=== PATIENT | female | born 1995 | race Caucasian/White ===

== ENCOUNTER → 2020-09-14 15:55 | Outpatient (CLI) | payer OTHER, SELFPAY ==
[2020-09-14 14:54] VITALS: BMI 27.3
[2020-09-14 16:12] LABS: Absolute Lymphocyte Count 2.17 X10^3/uL (0.83-4.51); Absolute Neutrophil Count 5.7 X10^3/uL (2.0-7.7); Basophil# 0.02 X10^3/uL; Basophil% 0.2 % (0-1); Eosinophil# 0.29 X10^3/uL; Eosinophils% 3.3 % (0-5); Hematocrit 40.3 % (37-47); Hemoglobin 13.6 g/dL (12.0-15.0); Lymphocyte # 2.17 X10^3/ul (0.83-4.51); Lymphocyte % 24.7 % (19-41); Mean Corp Hgb Conc 33.7 g/dL (32-36); Mean Corpuscular Hgb 30.5 pg (27.0-32.0); Mean Corpuscular Volume 90.4 fL (81-99); Mean Platelet Vol. 9.7 fl (6.2-12.0); Monocyte# 0.56 X10^3/uL; Monocyte% 6.4 % (0-10); NRBC Flagged by Analyzer 0 % (0-5); Neutrophil # 5.72 X10^3/uL (2.7-7.7); Neutrophil % 65.1 % (47-70); Platelet Count 245 K/mm3 (150-450); RBC Distribution Width CV 12.6 % (11.6-14.6); RBC Distribution Width SD 41.3 fl (35.1-43.9); Red Blood Count 4.46 M/mm3 (4.2-5.4); White Blood Count 8.8 K/mm3 (4.4-11.0)
[2020-09-15 10:43] LABS: HIV - WCH Non-Reactive (Nonreactive); Hepatitis B Surface Antigen Non-Reactive (Nonreactive); Hepatitis C Antibody Non-Reactive (Nonreactive); Rubella IgG Reactive (Nonreactive); Syphilis Antibodies Non-reactive
== END ==
PROVIDERS: PCP Family Medicine; Referring Provider Obstetrics & Gynecology; Visit Provider Obstetrics & Gynecology
DX: Z34.90 Encounter for supervision of normal pregnancy, unspecified, unspecified trimester (principal)
CPT/HCPCS: 36415; 85025; 86703; 86762; 86780; 86803; 86850; 86900; 86901; 87086; 87088; 87340

== ENCOUNTER → 2020-10-14 | Outpatient (CLI) | payer OTHER, SELFPAY ==
[2020-10-14 08:37] VITALS: BMI 27.3
[2020-10-14 13:45] LABS: Amphetamine Urine VISTA NEGATIVE (<1000 ng/mL); Barbiturate Urine VISTA NEGATIVE (< 200 ng/mL); Benzodiazepine Urine VISTA NEGATIVE (< 200 ng/mL); Cocaine Urine VISTA NEGATIVE (< 300 ng/mL); Ecstacy Urine VISTA NEGATIVE (< 500 ng/mL); Methadone Urine VISTA NEGATIVE (< 300 ng/mL); PCP Urine VISTA NEGATIVE (< 25 ng/mL); THC Urine VISTA NEGATIVE (< 50 ng/mL); Vista UDS pH Range 5
[2020-10-14 15:10] LABS: Chlamydia Trachomatis by PCR Negative (Negative); Neisserai gonorrhoeae by PCR Negative (Negative); Probe Check PASS; Sample Adequacy Control PASS; Specimen Processing Control PASS
== END | disposition home or self-care (01) ==
LOC: LABSPEC 13:01
PROVIDERS: PCP Family Medicine; Visit Provider Obstetrics & Gynecology
DX: Z34.92 Encounter for supervision of normal pregnancy, unspecified, second trimester (principal); Z3A.16 16 weeks gestation of pregnancy
CPT/HCPCS: 80307; 87491; 87591

== ENCOUNTER → 2020-11-09 15:04 | Outpatient (CLI) | payer OTHER, SELFPAY ==
[2020-11-09 12:49] VITALS: BMI 27.3
--- NOTE | 2020-11-09 15:11 | US_ITS ---
STUDY: SECOND AND THIRD TRIMESTER OBSTETRICAL ULTRASOUND REASON FOR EXAM: Female, 25 years old anatomy scan LMP: 06/24/2020. TECHNIQUE: Transabdominal TECHNICAL QUALITY: Adequate. PRIOR ULTRASOUND: None. FINDINGS: There is a single intrauterine fetus. The fetus is in a breech presentation. There is demonstrated cardiac activity with a heart rate of 141 bpm. There is a normal amniotic fluid volume. The largest amniotic fluid pocket measures 4.5 cm. The amniotic fluid index (GRETCHEN) is within normal limits. The placenta is posterior and low lying but not previa in location. The tip of the placenta is 6 mm away from the cervical os. There are Grade 0 placental changes. The cervix measures 5.4 cm in length. The adnexal regions are not visualized. BIOMETRY: BPD: 4.33 cm: 19 weeks, 0 days HC: 17.05 cm: 19 weeks, 4 days AC: 15.26 cm: 20 weeks, 3 days FL: 3.14 cm: 19 weeks, 5 days CI: 70.6% FL/BPD: 72.6% FL/HC: FL/AC: 18.4% HC/AC: 1.12 age by current US: 19 weeks, 3 days. SHERRY by current US: 04/02/2021. Estimated weight: 328 grams, +/- 49 grams, 63 %. Age by LMP: 19 weeks, 5 days. SHERRY by LMP: 03/31/2021. ANATOMY: Gender: Male Cranium: Normal lateral ventricles. Normal choroid plexus. Normal cerebellum. Normal cisterna magna. Normal face, nose and lips. Chest: Normal 4-chamber heart. Abdomen/Pelvis: Normal diaphragm. Normal stomach. Normal abdominal wall. Normal cord insertion. Normal 3 vessel cord. Normal kidneys. Normal bladder. Spine: Normal cervical spine. Normal thoracic spine. Normal lumbar spine. Normal sacrum. Extremities: Suboptimal imaging of both hands and feet. US/OB Anatomy Scan IMPRESSION: Single live uterine gestation with a mean gestational age of 19 weeks and 3 days. There is a posterior placenta that is low lying. Electronically Signed: Kevin Maurice MD at 8:43 EDT , Service support ,
== END ==
PROVIDERS: PCP Family Medicine; Referring Provider Obstetrics & Gynecology; Visit Provider Obstetrics & Gynecology
DX: Z36.89 Encounter for other specified antenatal screening (principal); O32.1XX0 Maternal care for breech presentation, not applicable or unspecified; Z3A.19 19 weeks gestation of pregnancy
CPT/HCPCS: 76805; 76817

== ENCOUNTER → 2021-01-04 10:17 | Outpatient (CLI) | payer OTHER, SELFPAY ==
[2021-01-04 10:47] LABS: Absolute Lymphocyte Count 1.77 X10^3/uL (0.83-4.51); Absolute Neutrophil Count 8.4 X10^3/uL (2.0-7.7); Basophil# 0.02 X10^3/uL; Basophil% 0.2 % (0-1); Eosinophil# 0.27 X10^3/uL; Eosinophils% 2.4 % (0-5); Hematocrit 38.1 % (37-47); Hemoglobin 12.8 g/dL (12.0-15.0); Lymphocyte # 1.77 X10^3/ul (0.83-4.51); Mean Corp Hgb Conc 33.6 g/dL (32-36); Mean Corpuscular Hgb 31.1 pg (27.0-32.0); Mean Corpuscular Volume 92.5 fL (81-99); Mean Platelet Vol. 9.9 fl (6.2-12.0); Monocyte# 0.59 X10^3/uL; Monocyte% 5.3 % (0-10); NRBC Flagged by Analyzer 0 % (0-5); Neutrophil # 8.37 X10^3/uL (2.7-7.7); Neutrophil % 75.6 % (47-70); Platelet Count 212 K/mm3 (150-450); RBC Distribution Width CV 13.9 % (11.6-14.6); RBC Distribution Width SD 46.8 fl (35.1-43.9); Red Blood Count 4.12 M/mm3 (4.2-5.4); White Blood Count 11.1 K/mm3 (4.4-11.0)
[2021-01-04 10:58] LABS: Glucose Challenge Gest 1H 50g 183 mg/dL (70-140)
== END ==
PROVIDERS: PCP Family Medicine; Referring Provider Obstetrics & Gynecology; Visit Provider Obstetrics & Gynecology
DX: Z34.90 Encounter for supervision of normal pregnancy, unspecified, unspecified trimester (principal); Z13.1 Encounter for screening for diabetes mellitus
CPT/HCPCS: 36415; 82950; 85025

== ENCOUNTER → 2021-01-09 12:30 | Outpatient (CLI) | payer OTHER, SELFPAY ==
[2020-11-09 12:49] VITALS: BMI 27.3
--- NOTE | 2021-01-09 12:32 | US_ITS ---
STUDY: SECOND AND THIRD TRIMESTER OBSTETRICAL ULTRASOUND - LIMITED REASON FOR EXAM: Female, 26 years old follow-up anatomy -- low lying placenta LMP: 06/24/2020. PRIOR ULTRASOUND: Comparison is made with prior sonogram dated 11/09/2020. TECHNIQUE: Transabdominal and Transvaginal TECHNICAL QUALITY: Adequate. FINDINGS: There is a single intrauterine fetus. The fetus is in a cephalic presentation. There is demonstrated cardiac activity with a heart rate of 143 bpm. There is a normal amniotic fluid volume. The largest amniotic fluid pocket measures 4.2 cm. The amniotic fluid index (GRETCHEN) is 13.4 cm. The placenta is posterior in location and is not low lying. There are Grade 1 placental changes. The cervix measures 3.5 cm in length. The hands and feet weren''t visualized on this examination. Normal anatomy. US/OB Limited (No Biometrics) IMPRESSION: No evidence of placenta previa. Electronically Signed: Kevin Maurice MD at 15:50 EDT , Service support ,
== END ==
PROVIDERS: PCP Family Medicine; Referring Provider Obstetrics & Gynecology; Visit Provider Obstetrics & Gynecology
DX: O44.42 Low lying placenta NOS or without hemorrhage, second trimester (principal); Z3A.00 Weeks of gestation of pregnancy not specified
CPT/HCPCS: 76815

== ENCOUNTER → 2021-03-07 09:03 | Outpatient (CLI) | payer OTHER, SELFPAY ==
--- NOTE | 2021-03-07 09:08 | US_ITS ---
STUDY: SECOND AND THIRD TRIMESTER OBSTETRICAL ULTRASOUND - LIMITED REASON FOR EXAM: Female, 26 years old growth @ 36 weeks LMP: 06/24/2020. PRIOR ULTRASOUND: Comparison is made with prior study dated 11/09/2020 and 01/09/2021. TECHNIQUE: Transabdominal TECHNICAL QUALITY: Adequate. FINDINGS: There is a single intrauterine fetus. The fetus is in a cephalic presentation. There is demonstrated cardiac activity with a heart rate of 139 bpm. There is a normal amniotic fluid volume. The largest amniotic fluid pocket measures 3.15 cm. The amniotic fluid index (GRETCHEN) is 8.67 cm. The placenta is fundal and posterior in location. There are Grade 3 placental changes. BIOMETRY: BPD: 8.43 cm: 33 weeks, 6 days HC: 32.33 cm: 36 weeks, 3 days AC: 32.74 cm: 36 weeks, 4 days FL: 7.18 cm: 36 weeks, 5 days Age by LMP: 36 weeks, 4 days. SHERRY by LMP: 03/31/2021. age by prior US: 36 weeks, 2 days. SHERRY by prior US: 04/02/2021. age by current US: 35 weeks, 6 days. SHERRY by current US: 04/05/2021. Estimated weight: 2907 grams, +/- 436 grams, 47 percentile. US/OB Limited With Biometrics IMPRESSION: Single live intrauterine gestation with mean gestational age of 36 weeks and 2 days. The measurements obtained today following thin the normal expected range. Electronically Signed: Kevin Maurice MD at 15:23 EST , Service support ,
== END ==
PROVIDERS: PCP Family Medicine; Referring Provider Obstetrics & Gynecology; Visit Provider Obstetrics & Gynecology
DX: O24.410 Gestational diabetes mellitus in pregnancy, diet controlled (principal); Z3A.36 36 weeks gestation of pregnancy
CPT/HCPCS: 76816; 87077; 87081; 87186

== ENCOUNTER → 2021-03-28 15:01 | Outpatient (CLI) | payer OTHER, SELFPAY ==
--- NOTE | 2021-03-28 15:05 | US_ITS ---
STUDY: SECOND AND THIRD TRIMESTER OBSTETRICAL ULTRASOUND - LIMITED REASON FOR EXAM: Female, 26 years old. growth. LMP: 06/24/2020. PRIOR ULTRASOUND: 11/09/2020, 01/09/2021 and 03/07/2021 TECHNIQUE: Transabdominal TECHNICAL QUALITY: Adequate. FINDINGS: There is a single intrauterine fetus. The fetus is in a cephalic presentation. There is demonstrated cardiac activity with a heart rate of 121 bpm. There is a normal amniotic fluid volume. The largest amniotic fluid pocket measures 3.65 cm. The amniotic fluid index (GRETCHEN) is 9.86 cm. The placenta is fundal in location. There are Grade 3 placental changes. The cervix is obscured. BIOMETRY: BPD: 8.63 cm: 34 weeks, 6 days HC: 33.03 cm: 37 weeks, 5 days AC: 3 to 0.67 cm: 36 weeks, 5 days FL: 7.78 cm: 39 weeks, 6 days Age by LMP: 39 weeks, 4 days. SHERRY by LMP: 03/31/2021. age by initial US: 30 weeks, 3 days. SHERRY by initial US: 04/02/2021. age by most recent prior US: 39 weeks, 0 days. SHERRY by most recent prior US: 04/05/2021. age by current US: 37 weeks, 2 days. SHERRY by current US: 04/16/2021. Estimated weight: 3168 grams, +/- 463 grams, 20 percentile. Gender: Indeterminant US/OB Limited With Biometrics IMPRESSION: 1. Live single intrauterine at 37 weeks, 2 days. This is almost 2 weeks behind expected gestational age by prior ultrasounds 2. EFW of 3168 g. This is at the 20th percentile. 3. GRETCHEN of 9.86 cm. 4. Fundal grade 3 placenta. 5. Vertex presentation. Electronically Signed: Dustin Lebron DO at 16:07 EST Tel [phone], Service support ,
== END ==
PROVIDERS: PCP Family Medicine; Referring Provider Obstetrics & Gynecology; Visit Provider Obstetrics & Gynecology
DX: O26.843 Uterine size-date discrepancy, third trimester (principal); Z3A.00 Weeks of gestation of pregnancy not specified
CPT/HCPCS: 76816

== ENCOUNTER 2021-03-30 08:50 | Inpatient (IN) | payer OTHER, SELFPAY ==
[2021-03-30] VITALS (38 sets, daily range): BP systolic 105–160; BP diastolic 56–87; PULSE 75–96; TEMP 36.3–37.2; O2SAT 91–100; BMI 30.8
--- NOTE | 2021-03-30 09:34 | HP.PCM_ITS ---
History and Physical Date of Admission: 03/30/21 Vital Signs 03/30/21 08:08 Height 5 ft 7 in BP 126/80 H Intake Visit Reasons: est ob GRETCHEN ONLY (gretchen 7) Chief Complaint: est ob GRETCHEN [employer] Required: No Is patient in pain?: No Allergies No Known Allergies Allergy (Verified 03/30/21 09:21) Medications docosahexaenoic acid 200 mg capsule See Rx Instructions .ROUTE .COMPLEX 09/14/20 [History Confirmed 03/30/21] blood sugar diagnostic [CareTouch Test Strip] 03/30/21 [History Confirmed 03/30/21] blood-glucose meter [CareTouch Glucose Monitoring] 03/30/21 [History Confirmed 03/30/21] Last Menstral Period: 06/24/20 Zika: Zika virus screening: Negative : No PFSH PFSH Medical History Asthma Low-lying placenta in second trimester Surgical History H/O hand surgery Hx of tonsillectomy Family History Grandfather Myocardial infarction Grandmother Diabetes CVA (cerebral vascular accident) Social History Smoking Status: Never smoker alcohol intake: never substance use type: does not use caffeine: Yes what type of physical activity do you participate in: none seatbelt use: always do you feel safe at home: Yes additional social history: - Bret Pregancy History 1 Elective abortions Hx Para Spontaneous abortions Hx # Term Pregnancies Ectopic pregnancies Hx # Pregnancies Multiple births # of living children HPI est ob GRETCHEN ONLY (gretchen 7) Details: DEEPAK MARKS is a 26 year old who presents for routine OB visit. upon evaluation she has oligohydramnios so will beed ot be induced due to gretchen of 1.7. she is having congestion and loss of smell symptoms x 1 week so is being tested for covid. OB Visit SHERRY Calculator Estimated Delivery Date Method Current WG Current Estimate 03/31/21 LMP (Certain) 39w 6d Other Estimates 03/31/21 Ultrasound #1 39w 6d Expected Delivery Route/Plan plan delivery by 40 Labor Preferences- CB/BF classes: declined labor support person: Bret, Mom- Sherry labor intervention preferences: prefers minimal pain management options preferred: open to epidural cut cord/dad catch: yes : yes PP control planned: discussed discussed possible routes of delivery and associated risks: [] special requests: wants to go as natural as possible Specific Issue/Plans covid status: non immune, counseled regarding risk of covid in vs vaccination and declined vaccination flu vaccine: decline tdap vaccine: decline rhogam: na LARC form signed: yes movement and labor precautions reviewed. Problem list reviewed and updated with the most current plan of care details and appropriate orders placed. Relevant counseling for the gestational age provided. Continue routine care and follow up unless otherwise noted in visit notes/problem list details Initial Weight: Not Recorded Date EGA Weight BP Urine Prot Glucose FHR FuHt Pres Dilation Effaced St Visit Note 09/14/20 11w 5d 144 lb 8 oz 112/82 163 GP - CRL 48mm consistent with LMP. 10/14/20 16w 0d 153 lb Negative Negative 11/09/20 19w 5d 157 lb 116/80 150 GP - no LOF, VB, DFM, ctx. Anatomy chava for today. 12/07/20 23w 5d 161 lb 6 oz 100/70 Negative Negative 145 23 GP - no lof, VB, dfm, ctx Discussed low-lying placenta. GCT given 01/04/21 27w 5d 162 lb 110/78 Negative 250 g/dL 140 27 GP - no LOF, VB, DFM, ctx. Failed 1h GCT - 3h ordered. Undecided on TDAP. FU US for low-lying placenta scheduled next week. 01/16/21 29w 3d 161 lb 98/60 140 30 SM- discussed diabetes diagnosis due to 1 hr over 180, no vb lof good fm no regular ctx 02/14/21 33w 4d 163 lb 6 oz 100/60 Negative Negative 141 33 MH-NO VB, LOF. Good FM. States glucose nl and following with Dr Roger. declines flu, tdap vaccine. 36wk growth US ordered. Larc 03/01/21 35w 5d 164 lb 114/70 Negative Negative 140 36 SM- no vb lof good fm no reuglar ctx 03/07/21 36w 4d 164 lb 8 oz 114/75 Negative Negative 132 37 MH-No VB, LOF. Good FM. Growth US today. GBS done. 03/13/21 37w 3d 170 lb 118/72 Negative Negative 120 37 SM- no vb lof good fm no regular ctx 03/20/21 38w 3d 165 lb 4 oz 116/72 Negative Negative 135 38 JV- fasting glucose levels under 90 but one was 93, 2 hr pp under 120. ok to deliver at 40 weeks if still normal next week. Pt wants minimal intervention. 03/27/21 39w 3d 165 lb 100/80 Negative Negative 135 37 SM- no vb ,lof, good fm no regular ctx BS well controlled SM- no vb ,lof, good fm no regular ctx BS well controlled gretchen 7 will get formal us and growth tomorrow 03/30/21 39w 6d 126/80 135 35 gretchen 1.7 CM RECOMMEND IOL ACOG First Trimester First Trimester: Desire for , Alcohol, Tobacco Cessation, Illicit/Recreational Drug/Substance Use, Intimate Partner Violence, Barriers to care, Unstable Housing, Communication Barriers, Environmental/Work Hazards, Anticipated Course of Care, Toxoplasmosis Precations, Use of Any medications, Sexual activity, Exercise, Dental Care, Sauna/Hot tub use, Seat Belt use, Childbirth classes/Hospital facilities, , Travel, Indications for Ultrasound and Screening for Aneuploidy Second Trimester Second Trimester: Signs and Symptoms of Labor, Selecting a care provider, Reproductive Life Planning & Contreception, Care Planning, Depression/Anxiety and Intimate Partner Violence; Discussed Tobacco Cessation Third Trimester Third Trimester: Pain Management Plans, Labor support person(s), Immediate Larc, Circumcision preference, Signs and Symptoms of Preeclampsia, Infant Feeding Yes , [place] Education and Family Medical Leave or Disability Forms Diagnostics Diagnostics Diagnostics: No Data to Display Details: HIV: Urine Culture: Sequential Screen: NIPT Screen: ROS Const Reports system reviewed and no additional complaints, except as documented Card Reports system reviewed and no additional complaints, except as documented Resp Reports system reviewed and no additional complaints, except as documented GI Reports system reviewed and no additional complaints, except as documented and Reports nausea Reports system reviewed and no additional complaints, except as documented Musc Reports system reviewed and no additional complaints, except as documented Exam Const General: cooperative, healthy appearing, comfortable and anxious HENMT Head: normal to inspection Nose: external nose normal Face and sinus: normal facial exam Neck Neck: normal visual inspection, full ROM and no lymphadenopathy Thyroid: thyroid normal Chest Chest palpation & inspection: normal inspection of the chest Resp Effort & Inspection: normal respiratory effort GI Inspection: normal to inspection Palpation: soft and other (gravid uterus) Other: vertex and appropriate size for gestational age Other: Cervical Exam: /-1 Extrem General: pedal edema Coding Level of Care Code OB Routine Diagnoses GRETCHEN (amniotic fluid index) borderline low O28.8 Group beta Strep positive B95.1 Gestational diabetes mellitus (GDM) O24.410 Gestational diabetes mellitus control: diet-controlled Trimester: third trimester Asthma J45.909 Family history of spina bifida Z82.79 Supervision of normal Z34.03 Normal : normal first Trimester: third trimester Z3A.39 Weeks of gestation: 39 weeks Assessment and Plan Assessment and Plan (1) GRETCHEN (amniotic fluid index) borderline low: Status: Acute Comment: formal us ordered, repeat (2) Group beta Strep positive: Status: Acute Comment: plan PCN in labor (3) Gestational diabetes mellitus (GDM): Status: Acute Qualifiers: Gestational diabetes mellitus control: diet-controlled Trimester: third trimester Qualified Code(s): O24.410 - Gestational diabetes mellitus in , diet controlled Comment: abnl 1 hr. endocrine consult, nutrition consult, diet 40 week delivery (4) Asthma: Status: Acute Comment: Exercise induced. Rare albuterol use (5) Family history of spina bifida: Status: Acute Comment: Half sister with history of spina bifida. Encouraged increased folate. Declines AFP. (6) Supervision of normal : Status: Acute Qualifiers: Normal : normal first Trimester: third trimester Qualified Code(s): Z34.03 - Encounter for supervision of normal first , third trimester Comment: PRR SHERRY 03/31/21 boy David Spouse:Bret (7) : Status: Acute Qualifiers: Weeks of gestation: 39 weeks Qualified Code(s): Z3A.39 - 39 weeks gestation of Comment: Declines NIPT, carrier, and AFP. anatomy nl Plan - Dr. Valeria Mi MD: Patient presents IOL, plan management for with pit and fb. Pain management: plans epidural. GBS positive Management of any complications: gdm check bs q 4 hours latent q 1 hour active. precautions for covid until results return I have reviewed the [facility] and made any clinically relevant updates. Plan Details Other Orders: UPDATE- I have seen the patient and performed any clinically relevant updates to the history and physical exam. Valeria Mi MD
[2021-03-30 11:16] LABS: Bedside Glucose 72 mg/dL (70-110)
[2021-03-30] MEDS: Lactated Ringers 1,000 ML 50 ML IV ×2 (11:25→18:10)
[2021-03-30 11:51] LABS: Absolute Lymphocyte Count 1.62 X10^3/uL (0.83-4.51); Absolute Neutrophil Count 4.6 X10^3/uL (2.0-7.7); Basophil# 0.02 X10^3/uL; Basophil% 0.3 % (0-1); Eosinophil# 0.16 X10^3/uL; Eosinophils% 2.3 % (0-5); Hematocrit 40.2 % (37-47); Hemoglobin 13.6 g/dL (12.0-15.0); Lymphocyte # 1.62 X10^3/ul (0.83-4.51); Lymphocyte % 23.5 % (19-41); Mean Corp Hgb Conc 33.8 g/dL (32-36); Mean Corpuscular Hgb 30.2 pg (27.0-32.0); Mean Corpuscular Volume 89.3 fL (81-99); Mean Platelet Vol. 10.9 fl (6.2-12.0); Monocyte# 0.46 X10^3/uL; Monocyte% 6.7 % (0-10); NRBC Flagged by Analyzer 0 % (0-5); Neutrophil # 4.58 X10^3/uL (2.7-7.7); Neutrophil % 66.5 % (47-70); Platelet Count 154 K/mm3 (150-450); RBC Distribution Width CV 14.6 % (11.6-14.6); RBC Distribution Width SD 47.1 fl (35.1-43.9); White Blood Count 6.9 K/mm3 (4.4-11.0)
[2021-03-30] MEDS: Oxytocin 30 units/NS 500 ml 30 UNITS/500 ML IV.SOLN IV (12:30)
[2021-03-30] MEDS: 0.9% Normal Saline Single 100 ML IV.SOLN. INTRA-UTER (12:55)
--- NOTE | 2021-03-30 14:20 | PCM.PN.BLA ---
Progress Note Pt is sitting up at bedside. She denies cough or Shortness of breath. She consents verbally to a siddiqui catheter cervical balloon placement. Pitocin is running and PCN is running for GBS proph. current tracing: FHT: 130's Moderate variability reactive no decelerations category I tracing [place]: q4-5 min low amp Contractions cx: 2/80/-2 siddiqui balloon was inserted into the uterus and inflatted with 50cc ns without difficulty then taped to the inner thigh. reviewed tracing abnormalities since last note: none A/P: 1. COVID in -new diagnosis to day. pt is mildy symptomatic. 2. Oligohydramnios 3. 38 weeks gestation Continue pit and plan to rupture membranes 4 hrs after start of pcn (at 4:30 pm)
[2021-03-30 15:31] LABS: Bedside Glucose 74 mg/dL (70-110)
[2021-03-30] MEDS: Penicillin G 3,000,000 Units 50 ML 100 UNITS IV ×2 (16:47→21:06)
[2021-03-30] MEDS: Lactated Ringers 500 ML 999 ML IV (19:13)
[2021-03-30 19:41] LABS: Bedside Glucose 62 mg/dL (70-110)
[2021-03-30 19:41] LABS: Bedside Glucose 96 mg/dL (70-110)
[2021-03-30] MEDS: fentaNYL-bupivacaine (epidural) 100 ML BAG EPIDURAL (20:42)
[2021-03-30 21:20] LABS: Bedside Glucose 96 mg/dL (70-110)
[2021-03-30] MEDS: Oxytocin 30 units/NS 500 ml 30 UNITS/500 ML IV.SOLN 334 UNITS IV (22:05)
--- NOTE | 2021-03-30 22:21 | EX.PCM.OBRPT ---
Maternal Data Information SHERRY Calculator Estimated Delivery Date Method Current WG Current Estimate 03/31/21 LMP (Certain) 39w 6d Other Estimates 03/31/21 Ultrasound #1 39w 6d Vaginal Delivery Maternal Presentation Maternal Presentation: Medically Indicated Induction Maternal Presentation: Acute Covid, 38 weeks with oligohydramnios Type of Induction: Pitocin and Tony Bulb Operative Information Date of Procedure: 03/30/21 Pre-Operative Diagnosis: 38 weeks , Oligohydramnios, acute COVID -19 infection Post-Operative Diagnosis: 38 weeks , Oligohydramnios, acute COVID -19 infection Type of Anesthesia: Epidural Estimated Blood Loss: 30cc Time of Delivery: 22:23 Findings Description of Procedure: Patient began pushing and delivered the head in the JOSE MANUEL presentation. The head was delivered atraumatically. The anterior and posterior shoulders delivered without complication followed by the rest of the and the was placed on the maternal abdomen. Delayed cord clamping was employed for approximately 60 seconds. Cord was clamped and cut and gentle traction was applied to the cord and the placenta delivered spontaneously immediately following it was noted to be intact with three-vessel cord. The perineum and vagina were inspected and noted to have no laceration. EBL was 30cc. Patient and tolerated delivery well. Presentation: Vertex Cord Entanglement: None Infant A Gender: Male (1 minute): 8 (5 minute): 9 Delayed Cord Clamping: Yes Post Vaginal Delivery Medications Given After Delivery: IV Pitocin Episiotomy Description: None Laceration: None Complication Complications: None
[2021-03-31] VITALS (12 sets, daily range): BP systolic 107–142; BP diastolic 62–107; PULSE 71–86; RESP 16–18; TEMP 36.3–36.8; O2SAT 96–99
[2021-03-31] MEDS: Acetaminophen 500 MG Tablet 1000 MG PO (00:38)
[2021-03-31 00:51] LABS: Bedside Glucose 97 mg/dL (70-110)
[2021-03-31 06:46] LABS: Bedside Glucose 68 mg/dL (70-110)
[2021-03-31 07:10] LABS: Bedside Glucose 64 mg/dL (70-110)
[2021-03-31 08:25] LABS: Bedside Glucose 132 mg/dL (70-110)
--- NOTE | 2021-03-31 14:42 | PCM.PN.BLA ---
Progress Note HPI: Patient doing well without complaints. Tolerating PO. Ambulating and voiding without difficulty. Feeding well. Denies chest pain, shortness of breath, calf pain/swelling, fevers, chills, lightheadedness. Physical Exam Const alert, oriented x3 and no apparent distress General Appearance: cooperative and comfortable Resp normal respiratory effort Cardio regular rate GI normal to inspection, nondistended, normoactive bowel sounds GI Narrative: uterus is firm below umbilicus Palpation: soft Bimanual Exam - Adnexa, Other: Negative for cul-de-sac fullness Back/Spine no CVA tenderness and thoraco-lumbar ROM normal Extremity normal to inspection, no clubbing, cyanosis or edema, no calf tenderness and no pedal edema Psych mental status grossly normal, thought process normal, cooperative, affect normal, speech normal, activity/motor behavior normal, denies homicidal ideation and denies suicidal ideation Assessment & Plan Assessment/Plan (1) Vaginal delivery: PLAN: s/p PPD #1 1. routine post delivery care 2. breast feeding- support given 3. rh positive 4. rubella immune
[2021-04-01 03:12] VITALS: BP 140/75; PULSE 76; RESP 18; TEMP 36.2; O2SAT 98
[2021-04-01 03:17] VITALS: BP 140/75; PULSE 81
[2021-04-01 07:50] VITALS: BP 104/72; PULSE 83
[2021-04-01 08:14] VITALS: BP 104/72; PULSE 83; RESP 16; TEMP 36.3
--- NOTE | 2021-04-01 08:48 | DCINST_ITS ---
Discharge Instructions Diet Discharge Diet: No restrictions Activity Discharge Activity: Return to Normal Activity, May Not Drive (while taking narcotic pain medications.) and May Shower May resume sexual activity in: 4-6 weeks Dressing / Incision Call your doctor if your incision/area has: Continuous Slow Oozing, Sudden Increased Bleeding, Increased Pain/ Swelling, Increased Redness and Foul Smelling Discharge Follow Up Care Please Follow Up With: Mitzi Fernández, DO When: Call [phone] to make an appointment with your doctor in 6 weeks. If you had elevated blood pressure or 4th degree laceration, you will need to be seen in 2 weeks. Test Results: Test results from this visit will be discussed in further detail at your follow-up appointment, if applicable. Discharge Plan Admission Admit Date/Time: 03/30/21 08:50 Attending Provider: Mitzi Fernández Primary Care Provider: Darlene Snyder Instructions Patient Instructions: After a Vaginal , Coronavirus Disease 2019 (COVID- 19): Caring for Yourself or Others Discharge Orders/Prescriptions Prescriptions: New ibuprofen 800 mg tablet 800 mg PO Q8H PRN (Reason: pain) 7 Days Qty: 30 RF: 0 docusate sodium [Colace] 100 mg capsule 100 mg PO DAILY 15 Days Qty: 15 RF: 0 Continued DHA 200 mg capsule See Rx Instructions .ROUTE .COMPLEX RF: 0 No Action (DME) CareTouch Test Strip Strip See Rx Instructions .ROUTE .MEDSUPPLY RF: 0 (DME) blood-glucose meter [CareTouch Glucose Monitoring] Kit See Rx Instructions .ROUTE .MEDSUPPLY RF: 0 Referrals / Follow Up: Darlene Snyder PA-C [Primary Care Provider] - Disposition Disposition (needs filled in before D/C Order can be placed): Home, Self Care
[2021-04-01 14:00] VITALS: RESP 16; TEMP 36.3
[2021-04-01 14:16] VITALS: RESP 16; TEMP 36.3
== END 2021-04-01 14:20 | disposition home or self-care (01) | DRG 805 ==
PROVIDERS: Obstetrics & Gynecology; Admitting Provider Obstetrics & Gynecology; PCP Family Medicine; Referring Provider Obstetrics & Gynecology; Visit Provider Obstetrics & Gynecology
DX: O41.03X0 Oligohydramnios, third trimester, not applicable or unspecified (principal); U07.1 COVID-19; Z37.0 Single live birth; O98.52 Other viral diseases complicating childbirth; O99.52 Diseases of the respiratory system complicating childbirth; J45.909 Unspecified asthma, uncomplicated; O99.824 Streptococcus B carrier state complicating childbirth; O24.420 Gestational diabetes mellitus in childbirth, diet controlled; Z3A.38 38 weeks gestation of pregnancy
CPT/HCPCS: 59025; 59050; 82962; 85025; 86850; 86900; 86901; 99218; J7120; G0378

== ENCOUNTER → 2021-03-30 | Outpatient (CLI) | payer OTHER, SELFPAY ==
[2021-03-30 10:06] LABS: Probe Check PASS; Specimen Processing Control PASS
== END | disposition home or self-care (01) ==
LOC: LABSPEC 08:34
PROVIDERS: PCP Family Medicine; Visit Provider Obstetrics & Gynecology
DX: U07.1 COVID-19 (principal); R43.2 Parageusia
CPT/HCPCS: 87635; U0005; U0003

== ENCOUNTER → 2022-09-21 | Outpatient (CLI) | payer OTHER, SELFPAY ==
[2022-09-25 20:07] LABS: Chlamydia By Nucleic Acid AMP Negative (Negative); Gonococcus By Nucleic Acid AMP Negative (Negative)
== END | disposition home or self-care (01) ==
LOC: LABSPEC 13:06
PROVIDERS: PCP Family Medicine; Referring Provider Advanced Practice Midwife; Visit Provider Advanced Practice Midwife
DX: Z34.90 Encounter for supervision of normal pregnancy, unspecified, unspecified trimester (principal)
CPT/HCPCS: 87086; 87088; 87186; 87491; 87591

== ENCOUNTER → 2022-10-02 | Outpatient (CLI) | payer OTHER, SELFPAY ==
[2022-10-02 11:52] LABS: Absolute Lymphocyte Count 1.61 X10^3/uL (0.83-4.51); Absolute Neutrophil Count 4.2 X10^3/uL (2.0-7.7); Basophil# 0.02 X10^3/uL; Basophil% 0.3 % (0-1); Eosinophil# 0.17 X10^3/uL; Eosinophils% 2.7 % (0-5); Lymphocyte # 1.61 X10^3/ul (0.83-4.51); Lymphocyte % 25.3 % (19-41); Mean Corp Hgb Conc 34.1 g/dL (32-36); Mean Corpuscular Hgb 30.7 pg (27.0-32.0); Mean Corpuscular Volume 89.9 fL (81-99); Mean Platelet Vol. 9.9 fl (6.2-12.0); Monocyte# 0.34 X10^3/uL; Monocyte% 5.3 % (0-10); NRBC Flagged by Analyzer 0 % (0-5); Neutrophil # 4.22 X10^3/uL (2.7-7.7); Neutrophil % 66.2 % (47-70); Platelet Count 205 K/mm3 (150-450); RBC Distribution Width CV 12.3 % (11.6-14.6); RBC Distribution Width SD 40.2 fl (35.1-43.9); Red Blood Count 4.56 M/mm3 (4.2-5.4); White Blood Count 6.4 K/mm3 (4.4-11.0)
[2022-10-02 12:04] LABS: Glucose Challenge Gest 1H 50g 113 mg/dL (70-140)
[2022-10-02 12:44] LABS: NATERA MAILED SPECIMEN
[2022-10-02 13:06] LABS: HIV - WCH Non-Reactive (Nonreactive); Hepatitis B Surface Antigen Non-Reactive (Nonreactive); Hepatitis C Antibody Non-Reactive (Nonreactive); Rubella IgG Reactive (Nonreactive); Syphilis Antibodies Non-reactive
== END | disposition home or self-care (01) ==
LOC: PAVLAB 11:32
PROVIDERS: PCP Family Medicine; Referring Provider Advanced Practice Midwife; Visit Provider Advanced Practice Midwife
DX: Z34.81 Encounter for supervision of other normal pregnancy, first trimester (principal); Z31.430 Encounter of female for testing for genetic disease carrier status for procreative management
CPT/HCPCS: 36415; 82950; 85025; 86703; 86762; 86780; 86803; 86850; 86900; 86901; 87340

== ENCOUNTER → 2023-01-29 | Outpatient (CLI) | payer OTHER, SELFPAY ==
[2023-01-29 11:58] LABS: Glucose Challenge Gest 1H 50g 149 mg/dL (70-140)
== END | disposition home or self-care (01) ==
LOC: LAB 10:49
PROVIDERS: Referring Provider Advanced Practice Midwife; Visit Provider Advanced Practice Midwife
DX: O09.299 Supervision of pregnancy with other poor reproductive or obstetric history, unspecified trimester (principal); Z3A.25 25 weeks gestation of pregnancy; Z86.32 Personal history of gestational diabetes
CPT/HCPCS: 36415; 82950

== ENCOUNTER → 2023-02-14 | Outpatient (CLI) | payer OTHER, SELFPAY ==
[2023-02-14 07:37] LABS: Glucose GTT-Gestation. Fasting 100 mg/dL (<105)
[2023-02-14 08:34] LABS: Glucose GTT-Gestational 1 Hr 259 mg/dL (<190)
[2023-02-14 09:31] LABS: Glucose GTT-Gestational 2 Hr 211 mg/dL (<165)
[2023-02-14 10:36] LABS: Glucose GTT-Gestational 3 Hr 147 L (<145)
== END | disposition home or self-care (01) ==
PROVIDERS: Referring Provider Advanced Practice Midwife; Visit Provider Advanced Practice Midwife
DX: O99.810 Abnormal glucose complicating pregnancy (principal); Z3A.00 Weeks of gestation of pregnancy not specified
CPT/HCPCS: 36415; 82951; 82952

== ENCOUNTER → 2023-03-06 | Outpatient (CLI) | payer OTHER, SELFPAY ==
--- NOTE | 2023-03-06 10:54 | US_ITS ---
STUDY: SECOND AND THIRD TRIMESTER OBSTETRICAL ULTRASOUND - LIMITED REASON FOR EXAM: Female, 28 years old GDM LMP: July 22, 2022. PRIOR ULTRASOUND: None. TECHNIQUE: Transabdominal TECHNICAL QUALITY: Adequate. FINDINGS: There is a single intrauterine fetus. The fetus is in a cephalic presentation. There is demonstrated cardiac activity with a heart rate of 150 bpm. There is a normal amniotic fluid volume. The largest amniotic fluid pocket measures 4.8 cm x 3.8 cm. The amniotic fluid index (GRETCHEN) is 15.92 cm. The placenta is anterior in location and is not low lying. There are Grade 1 placental changes. The cervix measures 4.3 cm in length. BIOMETRY: BPD: 8.07 cm: 32 weeks, 3 days HC: 30.31 cm: 33 weeks, 5 days AC: 29.06 cm: 33 weeks, 0 days FL: 6.26 cm: 32 weeks, 3 days Age by LMP: 32 weeks, 3 days. SHERRY by LMP: April 28, 2023. age by current US: 32 weeks, 6 days. SHERRY by current US: April 25, 2023. Estimated weight: 2068 grams, +/- 310 grams, 53.8 percentile. US/OB Limited With Biometrics IMPRESSION: Single live intrauterine gestation with a mean gestational age of 32 weeks and 6 days. Electronically Signed: Kevin Maurice MD at 11:08 EST ,
== END | disposition home or self-care (01) ==
PROVIDERS: Referring Provider Advanced Practice Midwife; Visit Provider Advanced Practice Midwife
DX: O24.419 Gestational diabetes mellitus in pregnancy, unspecified control (principal); Z3A.00 Weeks of gestation of pregnancy not specified
CPT/HCPCS: 76816

== ENCOUNTER → 2023-04-03 | Outpatient (CLI) | payer OTHER, SELFPAY ==
--- NOTE | 2023-04-03 10:34 | US_ITS ---
STUDY: SECOND AND THIRD TRIMESTER OBSTETRICAL ULTRASOUND - LIMITED REASON FOR EXAM: Female, 28 years old GDM LMP: July 22, 2022. PRIOR ULTRASOUND: Comparison is made with prior study dated March 06, 2023. TECHNIQUE: Transabdominal TECHNICAL QUALITY: Adequate. FINDINGS: There is a single intrauterine fetus. The fetus is in a cephalic presentation. There is demonstrated cardiac activity with a heart rate of 131 bpm. There is a normal amniotic fluid volume. The largest amniotic fluid pocket measures 6.8 cm. The amniotic fluid index (GRETCHEN) is 23 cm. The placenta is anterior in location and is not low lying. There are Grade 2 placental changes. The cervix length was not measured due to head positioning. BIOMETRY: BPD: 9 cm: 36 weeks, 3 days HC: 33.3 cm: 38 weeks, 0 days AC: 33.9 cm: 37 weeks, 6 days FL: 7.08 cm: 36 weeks, 2 days Age by LMP: 36 weeks, 3 days. SHERRY by LMP: April 28, 2023. age by prior US: 36 weeks, 1 days. SHERRY by prior US: April 25, 2023. age by current US: 37 weeks, 2 days. SHERRY by current US: April 22, 2023. Estimated weight: 3173 grams, +/- 476 grams, 75 percentile. US/OB Limited With Biometrics IMPRESSION: Single live uterine gestation with a mean gestational age of 36 weeks and 1 day. The measurements obtained today fall within the normal expected range. Electronically Signed: Kevin Maurice MD at 12:35 EST ,
== END | disposition home or self-care (01) ==
LOC: US 10:33
PROVIDERS: Referring Provider Advanced Practice Midwife; Visit Provider Advanced Practice Midwife
DX: O24.419 Gestational diabetes mellitus in pregnancy, unspecified control (principal); Z3A.00 Weeks of gestation of pregnancy not specified
CPT/HCPCS: 76816

== ENCOUNTER → 2023-04-04 | Outpatient (CLI) | payer OTHER, SELFPAY | END | disposition home or self-care (01) | LOC: LABSPEC 13:56 | PROVIDERS: Referring Provider Obstetrics & Gynecology; Visit Provider Obstetrics & Gynecology | DX: Z34.90 Encounter for supervision of normal pregnancy, unspecified, unspecified trimester (principal); Z3A.00 Weeks of gestation of pregnancy not specified | CPT/HCPCS: 87081 ==

== ENCOUNTER → 2023-04-16 | Outpatient (CLI) | payer OTHER, SELFPAY ==
--- NOTE | 2023-04-16 10:03 | US_ITS ---
STUDY: OBSTETRICAL ULTRASOUND - BIOPHYSICAL PROFILE REASON FOR EXAM: Female, 28 years old gestational diabetes -- with GRETCHEN LMP: July 22, 2022. PRIOR ULTRASOUND: Comparison is made with prior study April 03, 2023. TECHNIQUE: Transabdominal TECHNICAL QUALITY: Adequate. FINDINGS: There is a single intrauterine fetus. The fetus is in a cephalic presentation. There is demonstrated cardiac activity with a heart rate of 155 bpm. There is a normal amniotic fluid volume. The largest amniotic fluid pocket measures 6.9 cm. The amniotic fluid index (GRETCHEN) is 17.7 cm. The placenta is anterior in location and is not low lying. There are Grade 2 placental changes. Age by LMP: 38 weeks, 2 days. SHERRY by LMP: April 28, 2023. BIOPHYSICAL PROFILE: Breathing Movements (FBM): 2 Gross Body Movements (GBM): 2 Tone (FT): 2 Amniotic Fluid Volume (AFV): 2 TOTAL SCORE: 8 / 8 US/Biophysical Prof W/O Non Stres IMPRESSION: Normal biophysical profile of 8/8. Electronically Signed: Kevin Maurice MD at 13:27 EST ,
== END | disposition home or self-care (01) ==
LOC: US 10:03
PROVIDERS: Referring Provider Obstetrics & Gynecology; Visit Provider Obstetrics & Gynecology
DX: O24.419 Gestational diabetes mellitus in pregnancy, unspecified control (principal); Z3A.00 Weeks of gestation of pregnancy not specified
CPT/HCPCS: 76819

== ENCOUNTER 2023-04-23 07:20 | Inpatient (IN) | payer OTHER, SELFPAY ==
[2023-04-23] VITALS (15 sets, daily range): BP systolic 121–145; BP diastolic 73–98; PULSE 72–95; RESP 15–16; TEMP 36.3–37.2; O2SAT 97–98; BMI 33.6
[2023-04-23] MEDS: Lactated Ringers 1,000 ML 50 ML IV (08:00)
--- NOTE | 2023-04-23 08:31 | HP.PCM.OB_ITS ---
HPI - General General Date of Admission: 04/23/23 HPI Narrative DEEPAK MARKS, is a 28 y/o @ 39 weeks 2 days who presents to L&D for IOL for gestational diabetes. She is controlled with diet. She was checked by the nurse this am andthe membranes were accidentally partially ruptured with clear fluid. Maternal Data Information SHERRY Calculator Estimated Delivery Date Method Current WG Current Estimate 04/28/23 LMP (Certain) 39w 2d PFSH PFSH Medical History Asthma Gestational diabetes Oligohydramnios Home Medications docosahexaenoic acid 200 mg capsule ( DHA) See Rx Instructions .Route . COMPLEX Check with primary doctor 09/14/20 [History Last Taken 03/29/21] blood-glucose meter #1 ea 02/14/23 [Rx Last Taken Unknown] lancets #200 ea 02/14/23 [Rx Last Taken Unknown] blood sugar diagnostic (Blood Glucose Test strips) #120 ea 03/25/23 [Rx Last Taken Unknown] Allergy/AdvReac Type Severity Reaction Status Date / Time No Known Allergies Allergy Verified 04/19/23 10:31 Family History Grandfather Myocardial infarction Colon disorder Grandmother Diabetes CVA (cerebral vascular accident) Dementia Aunt Myocardial infarction Surgical History H/O hand surgery Hx of tonsillectomy Social History adopted: No household members: family number of children: 1 current occupational status: employed current occupation: [employer] pets and animals: Yes pets and animals: cat(s) history of recent travel: No sexually active: Yes Smoking Status: Former smoker second hand exposure: No alcohol intake: never substance use type: does not use caffeine: Yes Type: carbonated beverages what type of physical activity do you participate in: none seatbelt use: always do you feel safe at home: Yes additional social history: - Bret History 2 Elective abortions Hx Para 1 Spontaneous abortions Hx # Term Pregnancies Ectopic pregnancies Hx # Pregnancies Multiple births # of living children 1 Past Pregnancies Del. Date Name GA/Weeks Outcome Route Bth Weight Infant [facility] David 39 live - full term 6lbs 11oz Male [facility] Dr. Fernández Delivery Date: 03/30/21 Last Updated by: Paige Valderrama Gestational diabetes, [place] Visit Details Expected Delivery Route/Plan Labor Preferences- CB/BF classes: no labor support person: Bret labor intervention preferences: [] pain management options preferred: possible hypo-birthing wants to try unmedicated cut cord/dad catch:yes : yes PP control planned: discussed discussed possible routes of delivery and associated risks: [] special requests: [] Plans Covid status: declined Flu vaccine: [] Tdap vaccine: [] Rhogam: [] LARC form signed: [] Problem list reviewed and updated with the most current plan of care details and appropriate orders placed. Relevant counseling for the gestational age provided. Continue routine care and follow up unless otherwise noted in visit notes/problem list details OB Flowsheet Initial Weight: Not Recorded Date -?-?-?-?-?-?-?-?-?-?-?-?- EGA Weight BP Urine Prot -?-?-?-?-?-?-?-?-?-?-?-?- Glucose FHR FuHt Pres Dilation -?-?-?-?-?-?-?-?-?-?-?-?- Effaced St Visit Note 09/21/22 -?-?-?-?-?-?-?-?-?-?-?-?- 8w 5d 151 lb 6 oz 117/71 -?-?-?-?-?-?-?-?-?-?-?-?- 163 -?-?-?-?-?-?-?-?-?-?-?-?- KW- scan by JV. CRL=LMP. KW- scan by JV. CRL=LMP. 3.5 mm sub chorionic hemorrhage noted. 10/15/22 -?-?-?-?-?-?-?-?-?-?-?-?- 12w 1d 155 lb 2 oz 106/74 Nega tive -?-?-?-?-?-?-?-?-?-?-?-?- Negative 160 -?-?-?-?-?-?-?-?-?-?-?-?- KW-no vb/crampin g. AFP discussed and would like to wait until after US. Labs reviewed. no concerns at this time. 11/13/22 -?-?-?-?-?-?-?-?--?-?-?-?- 16w 2d 160 lb 2 oz 102/68 Nega tive -?-?-?-?-?-?-?-?-?-?-?-?- Negative 145 -?-?-?-?-?-?-?-?-?-?-?-?- KW-no vb/crampin g. US on 12/03. FOB to get carrier screening done. 12/12/22 -?-?-?-?-?-?-?-?-?-?-?-?- 20w 3d 164 lb 2 oz 101/63 Nega tive -?-?-?-?-?-?-?-?-?-?-?-?- Negative 145 20 -?-?-?-?-?-?-?-?-?-?-?-?- KW-no vb/crampin g. good FM. US normal. KW-no vb/cramping. good FM. US normal. no concerns today. going to [place] next week 01/17/23 -?-?-?-?-?-?-?-?-?-?-?-?- 25w 4d 169 lb 104/66 Negative -?-?-?-?-?-?-?-?-?-?-?-?- Negative 138 25 Cephalic -?-?-?-?-?-?-?-?-?-?-?-?- JV- no lof, vagi nal bleeding, or dec fm. JV- no lof, vaginal bleeding , or dec fm. plans to do her gct next visit. anatomy scan ws normal with normal fluid. 02/01/23 -?-?-?-?-?-?-?-?-?-?-?-?- 27w 5d 168 lb 4 oz 100/68 Nega tive -?-?-?-?-?-?-?-?-?-?-?-?- Negative 142 28 Cephalic -?-?-?-?-?-?-?-?-?-?-?-?- KW-no lof/vb/ctx . good fm. will do 3 hour gct with fresh test. 02/19/23 -?-?-?-?-?-?-?-?-?-?-?-?- 30w 2d 173 lb 6 oz 107/73 Nega tive -?-?-?-?-?-?-?-?-?-?-?-?- Negative 135 31 Cephalic -?-?-?-?-?-?-?-?-?-?-?-?- KW-no vb/lof/ctx . good fm. blood sugars reviewed-doing well. LARC done. 03/04/23 -?-?-?-?-?-?-?-?-?-?-?-?- 32w 1d 175 lb 4 oz 102/64 Nega tive -?-?-?-?-?-?-?-?-?-?-?-?- Negative 146 32 -?-?-?-?-?-?-?-?-?-?-?-?- MH-No Vb, LOF. G ood FM. All glucose readings WNL. Diet controlled. 03/18/23 -?-?-?-?-?-?-?-?-?-?-?-?- 34w 1d 177 lb 4 oz 122/75 Nega tive -?-?-?-?-?-?-?-?-?-?-?-?- Negative 47 34 -?-?-?-?-?-?-?--?-?-?-?-?- JV- no lof, vagi nal bleeding, or dec fm. no complaints. glucose levels still normal. 04/04/23 -?-?-?-?-?-?-?-?-?-?-?-?- 36w 4d 179 lb 6 oz Negative -?-?-?-?-?-?-?-?-?-?-?-?- Negative 130 37 -?-?-?-?-?-?-?-?-?-?-?-?- kw-no vb/lof/ctx . good fm. glucose remain stable. declines VE today. GBS today 04/11/23 -?-?-?-?-?-?-?-?-?-?-?-?- 37w 4d 178 lb 111/76 -?-?-?-?-?-?-?-?-?-?-?-?- 130 38 40 -?-?-?-?-?-?-?-?-?-?-?-?- SM- no vb lof go od fm no regular ctx SM- no vb lof good fm no reg ular ctx, reviewed BS, discussed borderline fluid would recommend laura/bpp next week and IOL 39-40 weeks. will see beginning of next week and schedule 04/16/23 -?-?-?-?-?-?-?-?-?-?-?-?- 38w 2d 179 lb 2 oz 129/83 Nega tive -?-?-?-?-?-?-?-?-?-?-?-?- Negative 125 40 Cephalic 1 -?--?-?-?-?-?-?-?-?-?-?-?- 50 -3 kw-no vb/l of/ctx. good fm. has US today. coming saturday for membrane sweep. unable to perform today. 04/19/23 -?-?-?-?-?-?-?-?-?-?-?-?- 38w 5d 178 lb 2 oz 130/82 Nega tive -?-?-?-?-?-?-?-?-?-?-?-?- Negative 130 38 Cephalic 3 -?-?-?-?-?-?-?-?-?-?-?-?- 70 -3 KW- no vb/ lof/ctx. good fm. membrane sweep today. KW- no vb/lof/ctx. good fm. membrane sweep today. IOL for tues ROS Constitutional Constitutional: Denies change in weight, fatigue, fever(s), headache(s), poor appetite or weakness Eyes Eyes: Denies blurry vision, change in vision, seeing flashes or spots in vision ENT HEENT: Denies dizziness, headache(s), loss taste/smell or sore throat Cardiovascular Cardiovascular: Denies chest pain, dizziness, dyspnea, irregular heart rhythm, leg edema, palpitations, rapid heart rate or vomiting Respiratory/Chest Respiratory/Chest: Denies chest tightness, cough, dyspnea or breast pain Gastrointestinal Gastrointestinal: Denies abdominal pain, anorexia, constipation, cramping, diarrhea, hemorrhoids, vomiting or weight changes Genitourinary Genitourinary: Denies dysuria, flank pain, genital lesions, genital pain, urinary frequency or urinary urgency Musculoskeletal Musculoskeletal: Denies back pain, difficulty walking, joint pain, limited range of motion, muscle cramps or numbness Integumentary Integumentary: Denies lesions or unusual bruising Neurologic Neurologic: Denies abnormal movements, abnormal speech, dizziness, numbness, seizure-like activity or syncope Psychiatric Psychiatric: Denies anxiety, behavioral changes, change in appetite, change in libido, cognitive impairment, confusion, depression, difficulty concentrating, hallucinations or suicidal thoughts Endocrine Endocrinology: Denies excessive sweating, polydipsia or polyuria Hematologic/Lymphatic Hematologic/Lymphatic: Denies easy bleeding, easy bruising or lymphadenopathy Allergic/Immunologic Allergic/Immunologic: Denies itchy eyes, lip swelling, seasonal rhinorrhea, rhinitis, throat swelling, tongue swelling, eczemia, wheezing or asthma Vital Signs Vital Signs Vital Signs: 04/23/23 07:39 04/23/23 07:39 04/23/23 07:41 Temperature Temperature Source Pulse Rate 92 95 Blood Pressure 130/77 H BP Systolic 130 BP Diastolic 77 Pulse Ox 04/23/23 07:41 04/23/23 07:39 04/23/23 07:39 Temperature Temperature Source Temporal Pulse Rate Blood Pressure BP Systolic BP Diastolic Pulse Ox 97 97 04/23/23 07:39 Temperature 98.6 F Temperature Source Pulse Rate Blood Pressure BP Systolic BP Diastolic Pulse Ox Physical Exam Const alert, oriented x3, no apparent distress and healthy appearing General Appearance: cooperative; Negative for anxious HEENT normocephalic Face and Sinus: normal facial exam Eyes EOMs intact bilaterally and no scleral icterus General Eye: normal appearance of both eyes Neck full ROM and supple Lymph Lymphatic: no lymphadenopathy noted Chest Chest: abnormal inspection of the chest Resp normal respiratory effort Effort and Inspection: able to speak in complete sentences Cardio regular rate GI soft to palpation and non-tender Inspection: gravid Palpation: soft; Negative for tender external exam normal Manual OB Exam: other /-2 Amniotic Fluid: ROM+plus and other amniotic fluid is moderate and clear Back/Spine no CVA tenderness Extremity normal to inspection, full ROM and no clubbing, cyanosis or edema General Extremity: Negative for calf tenderness or edema Skin Lesions: no lesions Rashes: no rashes Psych mental status grossly normal Labs Labs Labs: Blood Type A POSITIVE Antibody Screen NEGATIVE Hct 41.0 % (37-47) Hgb 14.0 g/dL (12.0-15.0) Obstetrics Ultrasound Syphilis Total Ab Non-reactive Rubella IgG Antibody Reactive (Nonreactive) Hep Bs Antigen Non-Reactive (Nonreactive) Hepatitis C Antibody Non-Reactive (Nonreactive) Chlamydia DNA (TOMMY) Negative (Negative) N.gonorrhoeae DNA (TOMMY) Negative (Negative) HIV 1&2 Antibody Non-Reactive (Nonreactive) Glucose 1 Hr 50 gm 149 mg/dL (70-140) H Gest Glucose Tolerance MG/DL Rhogam given: No Assessment & Plan (1) Gestational diabetes mellitus (GDM) affecting , antepartum: COMMENT: growth US 32 weeks (53%) 36 weeks (75%), diet controlled. (2) Abnormal glucose affecting : COMMENT: Will do 3 hour with fresh test (3) Genetic carrier status: COMMENT: of cystic fibrosis, offer testing to spouse, Spouse neg. 04/09 (4) History of gestational diabetes in prior , currently : (5) : QUALIFIERS: Weeks of gestation: 38 weeks Qualified Code(s): Z3A.38 - 38 weeks gestation of COMMENT: GBS neg, LR NIPT. AFP declined, normal anatomy (6) Supervision of normal : QUALIFIERS: Normal : normal first Trimester: third trimester Qualified Code(s): Z34.03 - Encounter for supervision of normal first , third trimester COMMENT: PRR SHERRY 04/28/23 PC David Spouse: Bret (7) Family history of spina bifida: COMMENT: Half sister with history of spina bifida. Encouraged increased folate. (8) Asthma: COMMENT: Exercise induced. Rare albuterol use PLAN: Plan Patient presents IOL, plan management for with pitocin/AROM. Pain management: plans epidural. GBS negative. Management of any complications: diet controlled DM I have reviewed the [facility] and made any clinically relevant updates.
[2023-04-23] MEDS: Oxytocin 15 Units/NS 250ml 15 UNITS/250 ML IV.SOLN 2 UNITS IV (08:40)
[2023-04-23 08:46] LABS: Absolute Lymphocyte Count 1.83 X10^3/uL (0.83-4.51); Absolute Neutrophil Count 5.6 X10^3/uL (2.0-7.7); Basophil# 0.03 X10^3/uL; Basophil% 0.4 % (0-1); Eosinophil# 0.21 X10^3/uL; Eosinophils% 2.5 % (0-5); Hematocrit 37.5 % (37-47); Hemoglobin 12.3 g/dL (12.0-15.0); Lymphocyte # 1.83 X10^3/ul (0.83-4.51); Lymphocyte % 22.2 % (19-41); Mean Corp Hgb Conc 32.8 g/dL (32-36); Mean Corpuscular Hgb 29.8 pg (27.0-32.0); Mean Corpuscular Volume 90.8 fL (81-99); Mean Platelet Vol. 11.4 fl (6.2-12.0); Monocyte# 0.54 X10^3/uL; Monocyte% 6.6 % (0-10); NRBC Flagged by Analyzer 0 % (0-5); Neutrophil # 5.58 X10^3/uL (2.7-7.7); Neutrophil % 67.7 % (47-70); Platelet Count 144 K/mm3 (150-450); RBC Distribution Width CV 14.2 % (11.6-14.6); RBC Distribution Width SD 46.9 fl (35.1-43.9); Red Blood Count 4.13 M/mm3 (4.2-5.4); White Blood Count 8.2 K/mm3 (4.4-11.0)
[2023-04-23 09:19] LABS: Bedside Glucose 102 mg/dL (74-106)
[2023-04-23 09:42] LABS: Syphilis Antibodies Non-reactive
[2023-04-23 10:45] LABS: Bedside Glucose 76 mg/dL (74-106)
[2023-04-23] MEDS: Oxytocin 10 UNITS/ML Vial IM (12:15)
--- NOTE | 2023-04-23 12:35 | OP.PCM_ITS ---
Assessment & Plan (1) Vaginal delivery: COMMENT: IOL 39.2 KW GDM Boy-Max (2) Gestational diabetes mellitus (GDM) affecting , antepartum: COMMENT: growth US 32 weeks (53%) 36 weeks (75%), diet controlled. (3) Genetic carrier status: COMMENT: of cystic fibrosis, offer testing to spouse, Spouse neg. 04/09 (4) History of gestational diabetes in prior , currently : (5) Abnormal glucose affecting : COMMENT: Will do 3 hour with fresh test (6) Family history of spina bifida: COMMENT: Half sister with history of spina bifida. Encouraged increased folate. (7) Supervision of normal : QUALIFIERS: Normal : normal first Trimester: third trimester Qualified Code(s): Z34.03 - Encounter for supervision of normal first , third trimester COMMENT: PRR SHERRY 04/28/23 PC David Spouse: Bret (8) : QUALIFIERS: Weeks of gestation: 38 weeks Qualified Code(s): Z3A.38 - 38 weeks gestation of COMMENT: GBS neg, LR NIPT. AFP declined, normal anatomy (9) Asthma: COMMENT: Exercise induced. Rare albuterol use Maternal Data Information SHERRY Calculator Estimated Delivery Date Method Current WG Current Estimate 04/28/23 LMP (Certain) 39w 2d Final SHERRY: 04/28/23 Final SHERRY Source: US >20 weeks Gestational age: 39.2 Vaginal Delivery Maternal Presentation Maternal Presentation: Medically Indicated Induction Maternal Presentation: Progressed well to 10cm dilated and made steady progress with effective maternal pushing. Delivered the head in JOSE MANUEL presentation. The head was delivered atraumatically and no nuchal cord was identified. The anterior and posterior shoulders delivered without complication followed by the rest of the infant and the infant was placed on the maternal abdomen. Delayed cord clamping was employed for approximately 3 minutes. Cord was clamped and cut and gentle traction was applied to the cord and the placenta delivered spontaneously. Immediately following, it was noted to be intact with a 3 vessel cord. The perineum and vagina were inspected and noted to have no laceration. EBL was 100cc. Patient and infant tolerated delivery well. Apgars 8/9. Dr Medina notified of vaginal delivery and orders reviewed. Physician agrees with current plan of care. Type of Induction: Pitocin Medical Reason for Induction: Maternal Medical Condition: list: Operative Information Date of Procedure: 04/23/23 Pre-Operative Diagnosis: See AP comments Post-Operative Diagnosis: Same Surgery / Procedure Performed: Spontaneous Vaginal Delivery asset coordinator #1: Lu Trejo Type of Anesthesia: None Estimated Blood Loss: 100 Time of Delivery: 12:10 Findings Amniotic Membrane Rupture Type: Artificial Amniotic Fluid Description: Clear Placental Delivery Description: Spontaneous Placenta Disposition: [facility] Cord Vessel Description: 3 Vessels Cord Entanglement: None A Gender: Male (1 minute): 8 (5 minute): 9 Delayed Cord Clamping: Yes Post Vaginal Delivery Medications Given After Delivery: IM Pitocin Episiotomy Description: None Laceration: None Complication Complications: None Multi Select Codes Urinary/Genital Urinary/Genital CPT Codes: 98090 Vaginal Delivery [facility]
--- NOTE | 2023-04-23 12:48 | DCINST_ITS ---
Discharge Instructions Diet Discharge Diet: No restrictions Activity Discharge Activity: Return to Normal Activity May resume sexual activity in: 6-8 weeks Dressing / Incision Call your doctor if you observe: Fever of 101 or Higher, Coldness, Increased Pain, Numbness or Tingling, Change in Color, Inability to urinate, Inability to have a bowel movement, Using more than 1 pad per hour, Shortness of breath, Dizziness, Fainting spells, Swelling in the ankles, Chest pain, Increased palpitations (irregular heartbeat), Calf discomfort and Uncontrolled pain Follow Up Care Please Follow Up With: Lu Trejo CNM When: Please call the office to schedule your follow up appointment in 6 weeks. If you had high blood pressure please call to schedule an appointment in 2 weeks. Test Results: Test results from this visit will be discussed in further detail at your follow- up appointment, if applicable. Discharge Plan Admission Admit Date/Time: 04/23/23 07:20 Attending Provider: Lu Trejo Primary Care Provider: Care Physician,Alba Primary Discharge Orders/Prescriptions Prescriptions: No Action DHA 200 mg capsule See Rx Instructions .ROUTE .COMPLEX Rx Instructions: used for gestational diabetes (DME) blood-glucose meter Misc See Rx Instructions .MEDSUPPLY Qty: 1 0RF Rx Instructions: As directed- Test fasting and 2 hours after meals (DME) lancets Misc See Rx Instructions .MEDSUPPLY Qty: 200 4RF Rx Instructions: As directed- fasting & 2 hr psot meals (DME) Blood Glucose Test Strip See Rx Instructions .Route Qty: 120 5RF Rx Instructions: As directed- fasting and 2 hr post meals Referrals / Follow Up: Care Physician,No Primary [Primary Care Provider] -
[2023-04-23 13:40] LABS: Bedside Glucose 106 mg/dL (74-106)
[2023-04-24 00:25] VITALS: BP 115/72; PULSE 82; RESP 16; TEMP 36.2; O2SAT 98
[2023-04-24 03:20] VITALS: BP 106/55; PULSE 67; RESP 16; TEMP 36.3; O2SAT 96
[2023-04-24 05:42] LABS: Bedside Glucose 72 mg/dL (74-106)
--- NOTE | 2023-04-24 08:05 | PN.OBGYN_ITS ---
Subjective Subjective Patient doing well without complaints. Tolerating PO. Ambulating and voiding without difficulty. Feeding well. Denies chest pain, shortness of breath, calf pain/swelling, fevers, chills, lightheadedness. Objective Data Objective Data Vital Signs: Vital Signs Temp Pulse Resp BP Pulse Ox O2 Del Method 97.4 F L 67 16 106/55 L 96 Room Air 04/24/23 03:20 04/24/23 03:20 04/24/23 03:20 04/24/23 03:20 04/24/23 03:20 04/24/23 03:20 Oxygen Delivery Method Room Air Weight: 178 lb 2 oz Body Mass Index (BMI) 33.6 Intake & Output: Intake and Output for Last 24 Hours 04/22/23 04/23/23 04/24/23 23:59 23:59 23:59 Intake Total 462.50 / 462.50 Output Total 1100 / 1100 Balance -637.50 / -637.50 Lab / Micro Data 04/23/23 08:00 Labs: Laboratory Results - last 24 hr 04/23/23 08:00: WBC 8.2, RBC 4.13 L, Hgb 12.3, Hct 37.5, MCV 90.8, MCH 29.8, MCHC 32.8, RDW Std Deviation 46.9 H, RDW Coeff of Josefa 14.2, Plt Count 144 L, MPV 11.4, Immature Gran % (Auto) 0.600, Neut % (Auto) 67.7, Lymph % (Auto) 22.2, [place] % (Auto) 6.6, Eos % (Auto) 2.5, Baso % (Auto) 0.4, Absolute Neuts (auto) 5.6, Absolute Lymphs (auto) 1.83, Nucleated RBC % 0, Syphilis Total Ab Non- reactive, Blood Type A POSITIVE, Antibody Screen NEGATIVE 04/23/23 08:51: POC Glucose 102 04/23/23 10:10: POC Glucose 76 04/23/23 13:17: POC Glucose 106 04/24/23 05:21: POC Glucose 72 L Physical Exam Const alert and oriented x3 HEENT normocephalic Eyes PERRL Neck full ROM Resp normal respiratory effort GI soft to palpation GI Narrative: FF below U Assessment & Plan (1) Spontaneous vaginal delivery: COMMENT: 04/23/23 Max KW (2) Gestational diabetes mellitus (GDM) affecting , antepartum: COMMENT: growth US 32 weeks (53%) 36 weeks (75%), diet controlled. (3) Genetic carrier status: COMMENT: of cystic fibrosis, offer testing to spouse, Spouse neg. 04/09 (4) Family history of spina bifida: COMMENT: Half sister with history of spina bifida. Encouraged increased folate. (5) Asthma: QUALIFIERS: Asthma severity: unspecified severity Asthma complica tion type: unspecified Asthma persistence: unspecified Qualified Code(s): J45.909 - Unspecified asthma, uncomplicated COMMENT: Exercise induced. Rare albuterol use PLAN: Plan s/p PPD # 1 1. routine post delivery care 2. breast feeding- support given 3. rh positive 4. rubella immune 5. home today
[2023-04-24 08:53] VITALS: BP 117/78; PULSE 81; RESP 16; TEMP 36.7; O2SAT 99
[2023-04-24 12:11] VITALS: BP 105/68; PULSE 74; RESP 16; TEMP 36.7; O2SAT 99
== END 2023-04-24 14:25 | disposition home or self-care (01) | DRG 807 ==
PROVIDERS: Admitting Provider Advanced Practice Midwife; Visit Provider Advanced Practice Midwife
DX: O24.420 Gestational diabetes mellitus in childbirth, diet controlled (principal); Z37.0 Single live birth; J45.990 Exercise induced bronchospasm; O99.52 Diseases of the respiratory system complicating childbirth; Z3A.39 39 weeks gestation of pregnancy; Z87.891 Personal history of nicotine dependence
CPT/HCPCS: 59025; 59050; 82962; 85025; 86780; 86850; 86900; 86901; 99221; J7120; G0378

== ENCOUNTER 2024-05-31 13:28 | Emergency (ER) | payer OTHER, SELFPAY ==
[2024-05-31 13:29] VITALS: BP 110/72; PULSE 74; RESP 16; TEMP 36.4; O2SAT 99; BMI 31.5
[2024-05-31 13:49] VITALS: O2SAT 100
--- NOTE | 2024-05-31 13:57 | CT_ITS ---
EXAM: BRAIN/HEAD WITHOUT CONTRAST CLINICAL HISTORY: Trauma COMPARISON: None. TECHNIQUE: Noncontrast images of the head with multiplanar reconstructions. Dose reduction techniques were used including intermediate exposure control (AEC),iterative reconstruction technique, and/or mA and/or KV dose adjustments based on patient's size. FINDINGS: CT HEAD FINDINGS: No acute intracranial hemorrhage, mass, mass effect, midline shift or pathologic extra-axial fluid collection. No hydrocephalus. Age- appropriate cerebral volume and white matter. Visualized paranasal sinuses and mastoid air cells are clear. The calvarium is grossly intact. CT/Brain/Head without Contrast IMPRESSION: No CT evidence of acute intracranial pathology. [facility]
--- NOTE | 2024-05-31 14:01 | EDS_ITS ---
HPI <SAUL Mahoney - Last Filed: 05/31/24 18:14> History of Present Illness Chief Complaint: Head Injury Narrative Narrative: 29-year-old female states she slipped on ice getting out of her car yesterday and struck her head on the ground. She does not clearly recall the impact but her significant other heard it. There was no loss of consciousness. She was nauseous and had a headache yesterday and this morning has persistent symptoms. She states she was dry heaving without vomiting. She has no visual changes or focal motor or sensory changes. She is not on blood thinners. PFSH <SAUL Mahoney - Last Filed: 05/31/24 18:14> ON LICENSE OF [facility] Medical History Gestational diabetes mellitus (GDM) affecting , antepartum Genetic carrier status Oligohydramnios Gestational diabetes Asthma Family history of spina bifida Home Medications ?Medication ?Instructions ?Recorded ?Last Taken ?Type docosahexaenoic acid 200 mg See Rx Instructions .Route 09/14/20 03/29/21 History capsule ( DHA) .COMPLEX Check with primary doctor citalopram 20 mg tablet 20 mg PO DAILY #30 tabs 0 06/22 Unknown Rx Allergy/AdvReac Type Severity Reaction Status Date / Time No Known Allergies Allergy Verified 05/31/24 13:31 Family History Grandfather Myocardial infarction Colon disorder Grandmother Diabetes CVA (cerebral vascular accident) Dementia Aunt Myocardial infarction Surgical History Hx of tonsillectomy H/O hand surgery Social History (Updated 05/31/24 @ 13:49 by Cony Caruso) adopted: No household members: family housing: house number of children: 1 current occupational status: employed current occupation: [email or web address] pets and animals: Yes pets and animals: cat(s) history of recent travel: No sexually active: Yes Smoking Status: Former smoker second hand exposure: No alcohol intake: never substance use type: does not use caffeine: Yes Type: carbonated beverages what type of physical activity do you participate in: none seatbelt use: always do you feel safe at home: Yes additional social history: - Bret ROS <SAUL Mahoney - Last Filed: 05/31/24 18:14> ROS ED ROS Narrative Constitutional: Negative for fever, chills. Eyes: Negative for visual change. GI: Positive for nausea. No vomiting. Neuro: Positive for headache, negative motor/sensory dysfunction. EXAM <SAUL Mahoney - Last Filed: 05/31/24 18:14> Physical Exam Narrative Exam Narrative: CONST: Patient sitting in no acute distress. EYES: Normal inspection. ENT: Head normocephalic atraumatic, no raccoon eyes or carmona sign, no hemotympanum, no nasal septal hematoma, no CSF otorrhea or rhinorrhea. NECK: Normal inspection. No midline spinal tenderness, no step off or crepitus. RESP: No respiratory distress, CTAB. CVS: Regular rate and rhythm, no murmur, no gallop. SKIN: Color normal, no rash, warm, dry, intact. EXTREMITIES: Normal appearance, no pedal edema. NEURO: Alert and answering questions appropriately. No upper or lower extremity drift, normal finger-nose and [id number], 5/5 strength, normal sensation. PSYCH: Normal affect. Const Vital Signs: 05/31/24 13:29 05/31/24 13:49 05/31/24 16:44 Temperature 97.5 F L 98.3 F Temperature Source Temporal Pulse Rate 74 61 Respiratory Rate 16 18 Respiratory Effort Normal Non-Labored Respiratory Depth Normal Respiratory Pattern Normal Blood Pressure 110/72 120/78 Blood Pressure Mean 84 92 Pulse Ox 99 100 100 Oxygen Delivery Method Room Air Room Air <Dr. Ty Echeverria DO - Last Filed: 05/31/24 20:48> Physical Exam Const Vital Signs: 05/31/24 13:29 05/31/24 13:49 05/31/24 16:44 Temperature 97.5 F L 98.3 F Temperature Source Temporal Pulse Rate 74 61 Respiratory Rate 16 18 Respiratory Effort Normal Non-Labored Respiratory Depth Normal Respiratory Pattern Normal Blood Pressure 110/72 120/78 Blood Pressure Mean 84 92 Pulse Ox 99 100 100 Oxygen Delivery Method Room Air Room Air MDM <SAUL Mahoney - Last Filed: 05/31/24 18:14> [facility] MDM Narrative Medical decision making narrative: Patient slipped on ice yesterday and sustained a closed head injury without loss of consciousness. She complains of nausea, dry heaving and persistent headache. She is awake alert with GCS 15. Vital signs stable. She has no external signs of head injury or basilar skull fracture. She is neurologically intact. Since she subjectively feels like her symptoms are worsening I ordered a CT brain scan which is negative. I offered Tylenol or Motrin but she declined stating she will take it at home. Head injury return precautions discussed and she was discharged in stable condition. Radiography Diagnostic Testing: Clinical Impression(s) from Imaging Studies Brain CT 05/31/24 13:57 IMPRESSION: No CT evidence of acute intracranial pathology. Reading Location: [facility] <Dr. Ty Echeverria, DO - Last Filed: 05/31/24 20:48> [facility] MDM Narrative Medical decision making narrative: Patient slipped on ice yesterday and sustained a closed head injury without loss of consciousness. She complains of nausea, dry heaving and persistent headache. She is awake alert with GCS 15. Vital signs stable. She has no external signs of head injury or basilar skull fracture. She is neurologically intact. Since she subjectively feels like her symptoms are worsening I ordered a CT brain scan which is negative. I offered Tylenol or Motrin but she declined stating she will take it at home. Head injury return precautions discussed and she was discharged in stable condition. Supervisory Physician Note Patient was seen and examined with the Advanced Practice Provider. Nursing notes and vital signs have been reviewed. Pertinent old records have been reviewed. I agree with the essential elements of the GENA's history, physical exam, assessment, and plan. The differential diagnosis and management options were discussed with the GENA. I participated in determining and agree with the management, procedures, final impression and disposition as documented. See changes noted by me. Please see addendum or separate note for any additional details. Gen: A&O x3, NAD Head: Normocephalic, atraumatic Eyes: No sclera icterus, conjunctiva clear, PERRL, EOMI ENT: TMs clear BL, moist mucous membranes, no swelling/lacerations/blood in the mouth or the nares, No nasal septal hematoma, no facial tenderness Neck: Trachea midline, No JVD, Nontender CV: RRR, no murmurs, no chest wall TTP Resp: Lungs CTA BL, no w/r/c GI: Abd soft, non-distended, non-tender, no r/r/g Musc: Full ROM, no deformity, no spinal TTP, no sam step-offs Skin: Warm, dry, intact Neuro: Alert, oriented, grossly intact, sensation intact, GCS 15 Psych: Cooperative, appropriate mood and affect Impression: 1. Closed head injury 2. Concussion Radiography Diagnostic Testing: Clinical Impression(s) from Imaging Studies Brain CT 05/31/24 13:57 IMPRESSION: No CT evidence of acute intracranial pathology. Reading [facility] Discharge Plan Triage Chief Complaint: Head Injury ED Midlevel Provider: Sherry Dumont ED Provider: Ty Echeverria Dx/Rx/DC Orders Clinical Impression: Closed head injury Instructions: ED Head Injury (Adult) Prescriptions: No Action DHA 200 mg capsule See Rx Instructions .ROUTE .COMPLEX Rx Instructions: used for gestational diabetes citalopram 20 mg tablet 20 mg PO DAILY Qty: 30 1RF Primary Care Provider: Darlene Snyder Referrals: Care Physician,No Primary [Non-Staff] - Activity Restrictions/Additional Instructions: Take Tylenol or Motrin as needed for your headache. If you develop severely worsening headache, vomiting, or confusion please be reevaluated. Print Language: Tunisian Disposition Disposition: Home, Self Care Discharge Date/Time: 05/31/24 16:50
[2024-05-31 16:44] VITALS: BP 120/78; PULSE 61; RESP 18; TEMP 36.8; O2SAT 100
== END 2024-05-31 16:50 | disposition home or self-care (01) ==
PROVIDERS: Emergency Provider Surgery; PCP Family Medicine; Visit Provider Surgery
DX: S06.0X0A Concussion without loss of consciousness, initial encounter (principal); W00.0XXA Fall on same level due to ice and snow, initial encounter; R40.2410 Glasgow coma scale score 13-15, unspecified time; Z87.891 Personal history of nicotine dependence
CPT/HCPCS: 70450; 99282